=== PATIENT | female | born 1950 | race Caucasian/White ===

== ENCOUNTER 2017-06-17 13:47 | Outpatient (CLI) | payer MEDICARE, OTHER ==
--- NOTE | 2017-06-17 19:02 | HP ---
DATE OF SERVICE: 06/17/2017 HISTORY OF PRESENT ILLNESS: Ms. Pilar Flores is a very pleasant 67-year-old, who [facility] of an ulceration over the left hip. The patient states that she woke up o day and noted the presence of a wound over her left hip. She states that the ulceration has been present for \\\\"months.\\\\" She states that she was seen for her ulceration and placed on dressing c hanges of a topical antibiotic ointment followed by gauze secured with tape. She states that at a f ollowup visit, the dressing changes were discontinued and that she was placed on a course of Keflex. She states that she has been performing dressing changes for her wound of saline-moistened gauze f ollowed by dry gauze secured with tape. The patient was referred to the [facility] by Dr. Crane. PAST MEDICAL HISTORY: 1. Hypertension. 2. Cerebrovascular accident 4 months ago. PAST SURGICAL HISTORY: 1. Appendectomy. 2. Laparoscopy. 3. Exploratory laparotomy/lysis of adhesions. 4. x2. 5. Left total hip replacement. 6. Cataract surgery. MEDICATIONS: 1. Atenolol. 2. Doxepin. 3. Gabapentin. 4. Lisinopril. 5. Meloxicam. 6. Pyridium. 7. Sertraline. 8. Dexter. ALLERGIES: PAPER TAPE, PENICILLIN. SOCIAL HISTORY: Negative for tobacco or ETOH use. FAMILY HISTORY: Significant for diabetes mellitus. The patient's father was diagnosed with diabete s mellitus. Family history is also significant for coronary artery disease. The patient's mother w as diagnosed with coronary artery disease. PHYSICAL EXAMINATION: VITAL SIGNS: Temperature 98.3, pulse 82, respirations 19, blood pressure 150/73. GENERAL: A 67-year-old female lying on table in examination room, in no acute distress. HEENT: Normocephalic, atraumatic. NECK: No nuchal rigidity. CHEST: Clear to auscultation. CARDIOVASCULAR: Regular rate and rhythm. ABDOMEN: Soft. EXTREMITIES: An ulceration over the left hip is present, which measures approximately 1.6 x 2.1 cm. The ulceration is in the center of the patient's surgical incision for left total hip replacement and the left hip prosthesis can be easily palpated underneath the ulceration. Only, a small amount of granulation tissue was visible within the wound margins. No purulent drainage is associated with the wound. No erythema. No cellulitis of the left hip is appreciated. No maceration of the skin of the periwound is noted. ASSESSMENT AND PLAN: 1. Ulceration over left hip. The patient's medical history is significant for left total hip repla cement in 2005. Cultures of the wound have been obtained today and sent for aerobic and anaerobic s tudies. Arrangements will also be made for evaluation by Infectious Diseases. In addition, arrange ments will be made for the home delivery of dressing supplies. The patient has been placed on dress ing changes of Silverlon, 4 x 4's, and an ABD secured with tape. These dressing changes are to be p erformed on a daily basis after cleansing and irrigation. No antibiotics will be prescribed today b ased upon the appearance of the wound. I will see Ms. Flores again as needed after her evaluation b y Infectious Diseases. 2. Hypertension. 3. History of cerebrovascular accident 4 months ago.
== END 2017-06-17 13:48 | disposition home or self-care (01) ==
LOC: WCC 13:47
PROVIDERS: ATTEND Family Medicine
DX: L98.499 Non-pressure chronic ulcer of skin of other sites with unspecified severity (principal); I10 Essential (primary) hypertension; Z86.73 Personal history of transient ischemic attack (TIA), and cerebral infarction without residual deficits
CPT/HCPCS: 87070; 87075; 87077; 87186; 87205; 97139; 97602; G0463; 99203